=== PATIENT | female | born 1950 | race Caucasian/White ===

== ENCOUNTER → 2016-10-16 | Outpatient (CLI) | payer BC ==
[2015-04-17 13:00] VITALS: BP 106/52
[~2016-10-16] MED LIST: ALPR0.254 PO; ANAS1TAB PO; DEXA4TAB PO; LEVO112T4 PO; LEVO125T PO; LEVO150T5 PO; ONDA8TAB12 PO; Oxycodone Hcl/Acetaminophen PO; SERT100T8 PO; ZOLP5TAB PO
--- NOTE | 2016-10-16 11:55 | KCIC ---
PROCEDURE Bone density DEXA. HISTORY Postmenopausal. History of chemotherapy drugs. COMPARISON Bone density DEXA 08/23/2014. FINDINGS Dual photon densitometry of the lumbar spine and left proximal femur is performed. Bone mineral density values are measured in grams per cm2. Lumbar spine, L1-L4, total bone mineral density 0.737, T-score -2.8, Z-score -1.1. Bone mineral density is decreased by 8.3 percent since the prior study. Left total femur bone mineral density 0.615, T-score -2.7, Z-score -1.5. The bone mineral density is decreased by 14.7 percent since the prior study. World Health Organization criteria for bone mineral density interpretation classify patient's as normal (T-score at or above -1.0), osteopenic (T-score between -1 and -2.5), or osteoporotic (T-score at or below -2.5). 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 Bone mineral density has decreased since the prior study. Electronically signed by: Yakov Hernandez MD (Oct 16, 2016 11:53:11)
== END | disposition home or self-care (01) ==
LOC: KCIC DEXA 09:00
PROVIDERS: ATTEND Internal Medicine Hematology & Oncology
DX: M81.0 Age-related osteoporosis without current pathological fracture (principal); Z78.0 Asymptomatic menopausal state
CPT/HCPCS: 77080

== ENCOUNTER 2017-03-22 13:38 | Emergency (ER) | payer MEDICARE, BC ==
[~2017-03-22] VITALS: Ht 154.9 cm; Wt 59.0 kg
[2017-03-22 13:54] VITALS: BP 137/82
[2017-03-22] MEDS ORDERED: PRED20TA PO (14:32)
--- NOTE | 2017-03-22 14:32 | PHYS DOC ---
Past Medical History Past Medical History: Depression, Hypertension, Hypothyroid, Other Additional Past Medical Histor: breast ca Past Surgical History: Appendectomy, Hysterectomy, Other Additional Past Surgical Histo: r breast, thyroidectomy, Alcohol Use: None Drug Use: None Adult General Chief Complaint Chief Complaint: SKIN RASH/ABSCESS [facility] HPI Patient is a 66 year old female presents emergency department stating that she has a rash on bilateral inner legs just above the ankle. The areas appear to be red no raised areas noted. Patient states that she had gone to the [facility] yesterday and she had noticed the rash when she woke up today. She states the rash does not itch and is really not very irritating. She states that it's red she denies any drainage or discharge coming from the site. She has not taken anything for the rash. Review of Systems Review of Systems Constitutional: Denies fever or chills [] Eyes: Denies change in visual acuity, redness, or eye pain [] HENT: Denies nasal congestion or sore throat [] Respiratory: Denies cough or shortness of breath [] Cardiovascular: No additional information not addressed in HPI [] GI: Denies abdominal pain, nausea, vomiting, bloody stools or diarrhea [] : Denies dysuria or hematuria [] Musculoskeletal: Denies back pain or joint pain [] Integument: rash denies skin lesions [] Neurologic: Denies headache, focal weakness or sensory changes [] Endocrine: Denies polyuria or polydipsia [] Allergies Allergies Allergies Coded Allergies Type Severity Reaction Last Updated Verified Sulfa (Sulfonamide Antibiotics) Allergy Intermediate Hives 06/22/14 Yes Physical Exam Physical Exam Constitutional: Well developed, well nourished, no acute distress, non-toxic appearance. [] HENT: Normocephalic, atraumatic, bilateral external ears normal, oropharynx moist, no oral exudates, nose normal. [] Eyes: PERRLA, EOMI, conjunctiva normal, no discharge. [] Neck: Normal range of motion, no tenderness, supple, no stridor. [] Cardiovascular:Heart rate regular rhythm, no murmur [] Lungs & Thorax: Bilateral breath sounds clear to auscultation [] Skin: Warm, dry, no erythema, patient with red rash noted to the inner bilateral lower legs. No drainage or discharge coming from the site. The rash appears to be red with no elevation noted. Back: No tenderness Extremities: No tenderness, no cyanosis, no clubbing, ROM intact, no edema. [] Neurologic: Alert and oriented X 3, normal motor function, normal sensory function, no focal deficits noted. [] Psychologic: Affect normal, judgement normal, mood normal. [] Current Patient Data Vital Signs Vital Signs Date Time Temp Pulse Resp B/P (MAP) Pulse Ox O2 Delivery O2 Flow Rate FiO2 03/22/17 13:54 98.2 80 19 98 Room Air 98.2 EKG EKG [] Radiology/Procedures Radiology/Procedures [] Course & Med Decision Making Course & Med Decision Making Pertinent Labs and Imaging studies reviewed. (See chart for details) Patient will be placed on steroids with recommendations to follow-up with her primary care provider in approximately 5-7 days. Patient was also instructed to use Benadryl of the areas become itching and irritated. Recommended keeping the areas clean dry and cool. Patient will be discharged home in stable condition signs and symptoms to return back to emergency department as been provided. [] Dragon Disclaimer Dragon Disclaimer This electronic medical record was generated, in whole or in part, using a voice recognition dictation system. Departure Departure Impression: Primary Impression: Contact dermatitis Disposition: 01 HOME, SELF-CARE Condition: STABLE Referrals: Edith CONTE MD (PCP) Patient Instructions: Contact Dermatitis, [id number] Additional Instructions: Keep the areas clean dry and cool. You may try Benadryl [id number] if you have any itching or irritation. This medication will cause drowsiness do not take any be alert and oriented. Medication as prescribed. Follow-up with your primary care physician within the next week. Return back to emergency prior signs symptoms of become worse. Scripts Prednisone (PREDNISONE) 20 Mg Tablet 40 MG PO DAILY for 7 Days, #14 TAB Prov: ELMER PIMENTEL APRN 03/22/17 ELMER PIMENTEL APRN Mar 22, 2017 14:32
== END 2017-03-22 14:37 | disposition home or self-care (01) ==
LOC: ER 13:38
DX: L25.9 Unspecified contact dermatitis, unspecified cause (principal); E03.9 Hypothyroidism, unspecified; I10 Essential (primary) hypertension; F32.9 Major depressive disorder, single episode, unspecified; Z90.710 Acquired absence of both cervix and uterus; Z90.49 Acquired absence of other specified parts of digestive tract; Z88.2 Allergy status to sulfonamides
CPT/HCPCS: 99283

== ENCOUNTER 2017-08-04 14:18 | Emergency (ER) | payer MEDICARE, BC ==
[~2017-08-04] VITALS: Ht 162.6 cm; Wt 59.0 kg
[~2017-08-04 14:18] MED LIST changes: +PRED20TA PO
[2017-08-04 15:00] VITALS: BP 154/68
[2017-08-04] MEDS ORDERED: fentaNYL PF VIAL 100 MCG/2 ML VIAL IV ONE (15:00)
[2017-08-04] MEDS ORDERED: IOHEXOL 300 MG/ML 100ML VIAL. IV ONE (15:15)
[2017-08-04 15:18] LABS: POTASSIUM ISTAT 4.4 mmol/L (3.5-5.0)
--- NOTE | 2017-08-04 15:26 | PHYS DOC ---
Past Medical History Past Medical History: Cancer, Depression, Hypertension, Hypothyroid, Other Additional Past Medical Histor: breast ca Past Surgical History: Appendectomy, Hysterectomy, Other Additional Past Surgical Histo: r breast, thyroidectomy, Alcohol Use: None Drug Use: None Adult General Chief Complaint Chief Complaint: MULTIPLE TRAUMA/FALL HPI HPI Patient is a 66 year old F who presents with left-sided rib/chest pain status post falling off a ladder approximately 3 feet. Patient states she was attempting to grab something up on a shelf and fell backwards and hit her left chest/ribs against a railing. Patient denies hitting her head and has no loss of consciousness. Patient denies any head or neck pain. Patient complains of just left rib pain. Patient denies any other injuries. Patient has no other complaints. Review of Systems Review of Systems GEN: Denies fevers, chills, sweats HEENT: Denies blurred vision, sore throat CV: Left rib pain RESP: Denies shortness of air, cough GI: Denies n/v/d NEURO: Denies confusion, dizziness MSK: Denies weakness, joint pain/swelling All other systems were reviewed and found to be within normal limits, except as documented in this note. Current Medications Current Medications Current Medications Medications (Trade) Dose Ordered Sig/Trini Start Time Stop Time Status Last Admin Dose Admin Fentanyl Citrate (Fentanyl 2ml Vial) 50 mcg 1X ONCE 08/04/17 15:00 08/04/17 15:01 DC 08/04/17 15:54 50 MCG Iohexol (Omnipaque 300 Mg/ml) 75 ml 1X ONCE 08/04/17 15:15 08/04/17 15:16 DC 08/04/17 15:35 75 ML Allergies Allergies Allergies Coded Allergies Type Severity Reaction Last Updated Verified Sulfa (Sulfonamide Antibiotics) Allergy Intermediate Hives 06/22/14 Yes Physical Exam Physical Exam GEN.: No apparent distress. Alert and oriented. HEENT: Head is normocephalic, atraumatic NECK: Supple. LUNGS: CTAB. CHEST WALL: Tenderness palpation over the left ribs midaxillary, no crepitus, no subcutaneous air palpated HEART: RRR, S1, S2 present. Peripheral pulses intact ABDOMEN: Soft, nontender. Positive bowel sounds. EXTREMITIES: Without any cyanosis. NEUROLOGIC: Normal speech, normal tone PSYCHIATRIC: Normal affect, normal mood. SKIN: No ulcerations Current Patient Data Vital Signs Vital Signs Date Time Temp Pulse Resp B/P (MAP) Pulse Ox O2 Delivery O2 Flow Rate FiO2 08/04/17 15:54 20 96 08/04/17 14:35 97.7 60 126/68 (87) Room Air 97.7 Lab Values Laboratory Tests Test 08/04/17 15:13 POC Hemoglobin 13.6 g/dL (12-15) POC Hematocrit 40 % (36-40) POC Sodium 139 mmol/L (135-145) POC Potassium 4.4 mmol/L (3.5-5.0) POC Chloride 105 mmol/L (98-110) POC Total CO2 28 mmol/L (23-32) Anion Gap 12 mmol/L (6-14) POC Blood Urea Nitrogen 21 mg/dL (8-26) POC Creatinine 0.9 mg/dL (0.5-1.4) Glucose Level 98 mg/dL (70-99) POC Ionized Calcium (Caridad) 1.22 mmol/L (1.13-1.32) Laboratory Tests 08/04/17 15:13 EKG EKG [] Radiology/Procedures Radiology/Procedures Ct chest: Impression: 1. No acute thoracic findings. 2. Small pulmonary nodules are stable back to February 16, 2015.[] Course & Med Decision Making Course & Med Decision Making Pertinent Labs and Imaging studies reviewed. (See chart for details) ED course: Patient was seen and examined emergency room CT scan of chest was ordered to rule out rib fractures normal color contusion I-STAT unremarkable CT scan was unremarkable for any acute abnormalities previous lung nodule stable 1625: Patient was updated on CT findings and plan to discharge. Recommended over -the-counter pain medication for management. And short-term follow-up with PCP. MDM: After reviewing the chart, CC/HPI/PMH, physical exam, [lab results], [ radiological results], I do not believe the patient has emergent medical condition warranting further workup and/or admission at this time. I do not believe the patient has a significant traumatic injury. Patient stable for discharge. Additional verbal discharge instructions were provided to the patient and that if symptoms get worse or any new symptoms arise that are worrisome to the patient she is to return to the emergency room immediately [] Dragon Disclaimer Dragon Disclaimer This electronic medical record was generated, in whole or in part, using a voice recognition dictation system. Departure Departure Impression: Primary Impression: Contusion of rib on left side Disposition: 01 HOME, SELF-CARE Condition: IMPROVED Referrals: Edith CONTE MD (PCP) Patient Instructions: Rib Contusion Additional Instructions: Please follow-up with your family physician in the next one to 2 days and return if symptoms increase CHRIS MENDEZ DO Aug 04, 2017 15:26
--- NOTE | 2017-08-04 16:08 | RAD ---
Indication: Left rib pain after a fall. Breast cancer. Technique: Axial images and coronal and sagittal reformatted images are provided. Comparison is from February 16, 2015. 75 mL of intravenous Omnipaque 300 was administered. One or more of the following individualized dose reduction techniques were utilized for this examination: 1. Automated exposure control 2. Adjustment of the mA and/or kV according to patient size 3. Use of iterative reconstruction technique Findings: The 2 mm nodule in the left upper lobe on image 14 is stable. 3 nodules measuring 2 mm in the left lower lobe on images 25 and 26 are stable. There is dependent atelectasis. There is no consolidation. There is no pleural effusion. Central airways are patent. There is atheromatous disease in the thoracic aorta without aneurysm. Coronary artery calcifications are noted. There is no hilar or mediastinal adenopathy. Patient has underwent right mastectomy. A displaced rib fracture is not apparent. There is mild dextrocurvature in the thoracic spine. Limited evaluation of the upper abdomen demonstrates fatty infiltration of the liver, mild. Impression: 1. No acute thoracic findings. 2. Small pulmonary nodules are stable back to February 16, 2015.
== END 2017-08-04 16:35 | disposition home or self-care (01) ==
LOC: ER 14:18
DX: S20.212A Contusion of left front wall of thorax, initial encounter (principal); F32.9 Major depressive disorder, single episode, unspecified; I10 Essential (primary) hypertension; E89.0 Postprocedural hypothyroidism; Z90.710 Acquired absence of both cervix and uterus; Z90.49 Acquired absence of other specified parts of digestive tract; Z88.2 Allergy status to sulfonamides; W11.XXXA Fall on and from ladder, initial encounter; Y93.89 Activity, other specified; Y92.89 Other specified places as the place of occurrence of the external cause; Y99.8 Other external cause status
CPT/HCPCS: 36415; 71260; 80047; 85014; 85018; 96374; 99284; J3010; Q9967

== ENCOUNTER → 2017-11-04 | Outpatient (CLI) | payer MEDICARE, BC | END | disposition home or self-care (01) | LOC: NM 07:34 | DX: C50.419 Malignant neoplasm of upper-outer quadrant of unspecified female breast (principal); M89.8X9 Other specified disorders of bone, unspecified site; Z17.0 Estrogen receptor positive status [ER+] | CPT/HCPCS: 78306; 96374; A9503 ==

== ENCOUNTER → 2017-11-10 | Outpatient (CLI) | payer MEDICARE, BC ==
[2017-11-10] MEDS: IOHEXOL 300 MG/ML 100ML VIAL. IV (11:16)
[2017-11-10] MEDS: IOHEXOL 240 MG/ML 50ML VIAL. PO (11:16)
== END | disposition home or self-care (01) ==
LOC: CT 09:40
DX: C50.419 Malignant neoplasm of upper-outer quadrant of unspecified female breast (principal); J43.2 Centrilobular emphysema; R16.1 Splenomegaly, not elsewhere classified; R94.8 Abnormal results of function studies of other organs and systems; Z17.0 Estrogen receptor positive status [ER+]
CPT/HCPCS: 71260; 74177; Q9966; Q9967

== ENCOUNTER → 2017-11-26 | Outpatient (CLI) | payer MEDICARE, BC ==
[2017-11-26 11:38] LABS: FECAL OB PT NEGATIVE (NEG)
[2017-11-26 11:39] LABS: NEG OBC FOB NEG; POS OBC FOB POS
== END | disposition home or self-care (01) ==
LOC: LAB 10:33
DX: R19.7 Diarrhea, unspecified (principal)
CPT/HCPCS: 82274; 87177; 87205

== ENCOUNTER → 2018-02-18 | Outpatient (CLI) | payer MEDICARE, BC ==
[~2018-02-18] MED LIST changes: -ALPR0.254 PO; -ANAS1TAB PO; +CONTRAST GIVEN. MC; -DEXA4TAB PO; -LEVO112T4 PO; -LEVO125T PO; -LEVO150T5 PO; -ONDA8TAB12 PO; -Oxycodone Hcl/Acetaminophen PO; -PRED20TA PO; -SERT100T8 PO; -ZOLP5TAB PO
[2018-02-18] MEDS: IOHEXOL 240 MG/ML 50ML VIAL. PO (08:45)
[2018-02-18] MEDS: IOHEXOL 300 MG/ML 100ML VIAL. IV (10:16)
== END | disposition home or self-care (01) ==
LOC: CT 08:32
DX: I70.0 Atherosclerosis of aorta (principal); Z85.3 Personal history of malignant neoplasm of breast; Z85.118 Personal history of other malignant neoplasm of bronchus and lung
CPT/HCPCS: 71260; 74177; Q9966; Q9967

== ENCOUNTER 2020-06-02 18:11 | Emergency (ER) | payer MEDICARE, BC ==
[~2020-06-02] VITALS: Ht 154.9 cm; Wt 50.0 kg
[~2020-06-02 18:11] MED LIST changes: +ALPR0.254 PO; +ANAS1TAB PO; -CONTRAST GIVEN. MC; +DEXA4TAB PO; +LEVO112T49 PO; +LEVO125T PO; +LEVO150T5 PO; +ONDA8TAB12 PO; +Oxycodone Hcl/Acetaminophen PO; +PRED20TA PO; +SERT100T8 PO; +ZOLP5TAB PO
--- NOTE | 2020-06-02 18:59 | PHYS DOC ---
Past Medical History Past Medical History: Cancer, Depression, Hypertension, Hypothyroid, Other Additional Past Medical Histor: breast ca; heart valve problem (ELMER SALAZAR BED RUBBER) Past Surgical History: Appendectomy, Hysterectomy, Other Additional Past Surgical Histo: r breast, thyroidectomy, (ELMER SALAZAR BED RUBBER) Smoking Status: Former Smoker Alcohol Use: None Drug Use: None (ELMER SALAZAR BED RUBBER) General Adult EDM: Chief Complaint: MECHANICAL FALL HPI: HPI: Patient is a 69 year old female who presents with states over the last week she has become more unsteady on her feet. She is currently on her second round of treatment antibiotics for a urinary tract infection. states today she went shopping with her friends and states when she came home she went up a couple of stairs but then fell back onto her bottom on wooden stairs. states he is worried that she is having a stroke. Patient states that she is currently slightly lightheaded. Patient currently denies any pain. Patient denies back pain, neck pain, headache, dizziness, chest pain, shortness of air, fever, syncope, vision changes, numbness or tingling. (ELMER SALAZAR BED RUBBER) Review of Systems: Review of Systems: Constitutional: Denies fever or chills. [] Eyes: Denies change in visual acuity. [] HENT: Denies nasal congestion or sore throat. [] Respiratory: Denies cough or shortness of breath. [] Cardiovascular: Denies chest pain or edema. [] GI: Denies abdominal pain, nausea, vomiting, bloody stools or diarrhea. [] : Denies dysuria. [] Musculoskeletal: Denies back pain or joint pain. +Unsteady, +coccyx pain [] Integument: Denies rash. [] Neurologic: Denies headache, focal weakness or sensory changes. + Lightheadedness [] Endocrine: Denies polyuria or polydipsia. [] Lymphatic: Denies swollen glands. [] Psychiatric: Denies depression or anxiety. [] (ELMER SALAZAR BED RUBBER) Heart Score: Risk Factors: Risk Factors: DM, Current or recent (<one month) smoker, HTN, HLP, family history of CAD, obesity. Risk Scores: Score 0 - 3: 2.5% MACE over next 6 weeks - Discharge Home Score 4 - 6: 20.3% MACE over next 6 weeks - Admit for Clinical Observation Score 7 - 10: 72.7% MACE over next 6 weeks - Early Invasive Strategies ([facility]) Allergies: Allergies: Allergies Coded Allergies Type Severity Reaction Last Updated Verified Sulfa (Sulfonamide Antibiotics) Allergy Intermediate Hives 06/22/14 Yes ([facility]) Physical Exam: PE: Constitutional: Well developed, well nourished, no acute distress, non-toxic appearance. [] HENT: Normocephalic, atraumatic, bilateral external ears normal, oropharynx moist, no oral exudates, nose normal. [] Eyes: PERRLA, EOMI, conjunctiva normal, no discharge. [] Neck: Normal range of motion, no tenderness, supple, no stridor. [] Cardiovascular:Heart rate regular rhythm, no murmur [] Lungs & Thorax: Bilateral breath sounds clear to auscultation [] Abdomen: Bowel sounds normal, soft, no tenderness, no masses, no pulsatile masses. [] Skin: Warm, dry, no erythema, no rash. [] Back: No tenderness, no CVA tenderness. [] Extremities: No tenderness, no cyanosis, no clubbing, ROM intact, no edema. [] Neurologic: Alert and oriented X 3, normal motor function, normal sensory function, no focal deficits noted. [] Psychologic: Affect normal, judgement normal, mood normal. Normal physical exam [] ([facility] Current Patient Data: Vital Signs: Vital Signs Date Time Temp Pulse Resp B/P (MAP) Pulse Ox O2 Delivery O2 Flow Rate FiO2 06/02/20 18:29 98.1 69 16 121/58 (79) 97 Room Air 98.1 ([facility]) EKG: EK and read as sinus rhythm and no STEMI [] ([facility]) Radiology/Procedures: Radiology/Procedures: [] Impression: [facility] [address] [place], [place] [id number] IMAGING REPORT Signed PATIENT: NANO BATISTA ACCOUNT: [id number] : 1950 LOCATION: ER AGE: 69 SEX: F EXAM STATUS: REG ER ORD. PHYSICIAN: ELMER SALAZAR APRN REASON: fall PROCEDURE: SACRUM & COCCYX 3V SACRUM COCCYX 3V Clinical Indication: Reason: fall / Spl. Instructions: / History: Comparison: None. Findings: No diastasis of symphysis pubis. Pubic rami are intact. Visualized hips unremarkable. Sacroiliac joints are symmetric. No acute sacral fracture. Question small gap at the distal coccyx segments, but does not appear acute. The sacral alignment is maintained. Atherosclerotic abdominal aorta. Lower lumbar spine alignment is maintained. IMPRESSION: No acute fracture. Electronically signed by: Yakov Hernandez MD (06/02/2020 7:26 PM) [facility] DICTATED and SIGNED BY: YAKOV HERNANDEZ MD DATE: 06/02/20 [address] [facility] [address] [place] [address] IMAGING REPORT Signed PATIENT: NANO BATISTA ACCOUNT: [id number] : 1950 LOCATION: ER AGE: 69 SEX: F EXAM STATUS: REG ER ORD. PHYSICIAN: ELMER SALAZAR APRN REASON: light headedness PROCEDURE: CT HEAD WO CONTRAST PQRS Compliance Statement: One or more of the following individualized dose reduction techniques were utilized for this examination: 1. Automated exposure control 2. Adjustment of the mA and/or kV according to patient size 3. Use of iterative reconstruction technique CT HEAD WITHOUT CONTRAST History: Reason: light headedness / Spl. Instructions: / History: Comparison: None. Technique: Axial images are obtained of the head from the skull base through the vertex without IV contrast. Findings: No mass-effect, midline shift, extra-axial fluid collection, hemorrhage, or obvious acute infarction is identified. Basilar cisterns are patent. The ventricles and sulci are normal for patient age. There is mild periventricular white matter hypoattenuation. This is a nonspecific finding but is commonly due to chronic small vessel ischemic disease. Bone windows demonstrate no acute calvarial abnormality. The visualized paranasal sinuses are clear. Mastoid air cells are well aerated. IMPRESSION: 1. No acute intracranial abnormality. 2. Mild periventricular white matter changes probably due to chronic small vessel ischemic disease. Electronically signed by: Yakov Hernandez MD (06/02/2020 7:46 PM) [facility] DICTATED and SIGNED BY: YAKOV HERNANDEZ MD DATE: 06/02/201945 (ELMER SALAZAR APRN) Course & Med Decision Making: Course & Med Decision Making Pertinent Labs and Imaging studies reviewed. (See chart for details) See HPI. Alert and oriented x4. Speaks in full complete sentences. NIH is 0. Ambulatory with a steady gait but does sway a bit when walking but herself. states that she is usually unsteady. It is unclear of what her baseline actually is. But has been stating that patient seems slightly more unsteady when walking. Patient and deny her hitting her head. There is no focal bony spinal tenderness. Full range of motion of her neck. No trauma to her head or face. No bruising or deformity to any joints or swelling to any joints. No hip pain with palpation or with palpation on her coccyx. No pain is elicited with pelvic rock. Patient has full range of motion at her hip joints and at all joints of her body. Equal strengths and general foreman with all extremities. No extremity swelling. Skin pink warm and dry. Patient states she is otherwise feeling fine. Patient is afebrile. CT head is normal. Sacrum coccyx x-ray is normal. Urinalysis still shows infection. Patient states she finished antibiotic yesterday but neither her nor her can tell me what antibiotic she was on. Patient states that she is feeling good. Patient is eating and drinking at home. She does not have a high white blood cell count. No signs of sepsis. Vital signs are within normal limits. I will put patient on an antibiotic and will be sent home. I spoke to the patient and her family we used shared decisi on making and they have decided that they want to go home. I did offer admission. Patient is stable to continue outpatient antibiotics. [] (ELMER SALAZAR APRN) Dragon Disclaimer: Dragon Disclaimer: This electronic medical record was generated, in whole or in part, using a voice recognition dictation system. (ELMER SALAZAR APRN) NIHSS Stroke Scale NIH Stroke Scale: NIH Stroke Scale Response (Comments) Value Level of Consciousness: 0 Alert/Responsive 0 LOC Questions: 0 Answers both correctly 0 LOC Commands: 0 Performs both tasks 0 Best Gaze: 0 Normal 0 Visual: 0 No visual loss 0 Facial Palsy: 0 Normal, symmetrical 0 Motor - Left Arm 0 No drift 0 Motor - Right Arm 0 No drift 0 Motor - Left Leg 0 No drift 0 Motor: Right Leg 0 No drift 0 Limb Ataxia: 0 Absent 0 Sensory: 0 No loss 0 Best Language: 0 Normal 0 Dysathria: 0 Normal 0 Extinction and Inattention: 0 Normal 0 Total 0 Departure Departure Impression: Primary Impression: UTI (urinary tract infection) Qualified Codes: N30.01 - Acute cystitis with hematuria Additional Impression: Fall Qualified Codes: W19.XXXA - Unspecified fall, initial encounter Disposition: 01 DC HOME SELF CARE/HOMELESS Condition: STABLE Referrals: Edith CONTE MD (PCP) Patient Instructions: Fall Prevention and Home Safety, [id number], Urinary Tract Infection Additional Instructions: Follow-up with primary care provider as soon as possible. Drink plenty of fluids. Take medication as prescribed. If you begin getting worse return to the emergency room. Scripts Nitrofurantoin Monohyd/M-Cryst (MACROBID 100 MG CAPSULE) 100 Mg Capsule 1 CAP PO BID for 10 Days, #20 CAP 0 Refills Prov: ELMER SALAZAR APRN 06/02/20 Attending Signature Attending Signature I have reviewed the PA/IT SECURITY ENGINEER's note and plan of care. I was available for consultation as needed during the patient's visit in the emergency department. I agree with the clinical impression, plan, and disposition. (NGUYEN SANCHEZ DO) ELMER SALAZAR APRN Jun 02, 2020 18:59 NGUYEN SANCHEZ DO Jun 02, 2020 23:08
[2020-06-02 19:27] LABS: BASO % 1 % (0-3); EOS # 0.1 x10^3/uL (0.0-0.7); EOS % 2 % (0-3); HEMATOCRIT 35.6 % (36.0-47.0); HEMOGLOBIN 12.2 g/dL (12.0-15.5); LYMPH # 1.2 x10^3/uL (1.0-4.8); LYMPH % 21 % (24-48); MEAN CORPUSCULAR HEMOGLOBIN 27 pg (25-35); MEAN CORPUSCULAR HGB CONC 34 g/dL (31-37); MEAN CORPUSCULAR VOLUME 80 fL (79-100); MONO # 0.4 x10^3/uL (0.0-1.1); MONO % 8 % (0-9); NEUT # 3.7 x10^3/uL (1.8-7.7); NEUT % 69 % (31-73); PLATELET COUNT 120 x10^3/uL (140-400); RED BLOOD COUNT 4.46 x10^6/uL (3.50-5.40); RED CELL DISTRIBUTION WIDTH 15.5 % (11.5-14.5); WHITE BLOOD COUNT 5.4 x10^3/uL (4.0-11.0)
--- NOTE | 2020-06-02 19:29 | RAD ---
SACRUM COCCYX 3V Clinical Indication: Reason: fall / Spl. Instructions: / History: Comparison: None. Findings: No diastasis of symphysis pubis. Pubic rami are intact. Visualized hips unremarkable. Sacroiliac joints are symmetric. No acute sacral fracture. Question small gap at the distal coccyx segments, but does not appear acute. The sacral alignment is maintained. Atherosclerotic abdominal aorta. Lower lumbar spine alignment is maintained. IMPRESSION: No acute fracture. Electronically signed by: Yakov Hernandez MD (06/02/2020 7:26 PM) ALIE
[2020-06-02 19:30] LABS: BILIRUBIN,URINE NEGATIVE (NEG); CLARITY,URINE CLEAR; COLOR,URINE YELLOW; NITRITE,URINE NEGATIVE (NEG); PH,URINE 5.5 (<5.0-8.0); PROTEIN,URINE NEGATIVE (NEG-TRACE); UROBILINOGEN,URINE 0.2 mg/dL (0.2 mg/dL)
[2020-06-02 19:35] LABS: CALCIUM 8.7 mg/dL (8.5-10.1); CREATININE 1.3 mg/dL (0.6-1.0); GFR 40.7; POTASSIUM 3.4 mmol/L (3.5-5.1)
[2020-06-02 19:37] LABS: ALBUMIN 4.1 g/dL (3.4-5.0); ALBUMIN/GLOBULIN RATIO 1.5 (1.0-1.7); PROTHROMBIN TIME PATIENT 14.5 SEC (11.7-14.0); TOTAL BILIRUBIN 0.4 mg/dL (0.2-1.0); TOTAL PROTEIN 6.8 g/dL (6.4-8.2)
[2020-06-02 19:37] LABS: BARBITURATES NEG (NEG); BENZODIAZEPINES POS (NEG); CANNABINOIDS NEG (NEG); COCAINE NEG (NEG); METHADONE NEG (NEG); OPIATES NEG (NEG); PHENCYCLIDINE NEG (NEG)
[2020-06-02 19:44] LABS: AMPHETAMINE/METHAMPHETAMINE NEG (NEG)
[2020-06-02 19:45] LABS: WBC,URINE TNTC /HPF (0-4)
[2020-06-02 19:46] LABS: BACTERIA,URINE MODERATE /HPF (0-FEW); HYALINE CASTS, URINE FEW /HPF
--- NOTE | 2020-06-02 19:49 | RAD ---
RS Compliance Statement: One or more of the following individualized dose reduction techniques were utilized for this examination: 1. Automated exposure control 2. Adjustment of the mA and/or kV according to patient size 3. Use of iterative reconstruction technique CT HEAD WITHOUT CONTRAST History: Reason: light headedness / Spl. Instructions: / History: Comparison: None. Technique: Axial images are obtained of the head from the skull base through the vertex without IV contrast. Findings: No mass-effect, midline shift, extra-axial fluid collection, hemorrhage, or obvious acute infarction is identified. Basilar cisterns are patent. The ventricles and sulci are normal for patient age. There is mild periventricular white matter hypoattenuation. This is a nonspecific finding but is commonly due to chronic small vessel ischemic disease. Bone windows demonstrate no acute calvarial abnormality. The visualized paranasal sinuses are clear. Mastoid air cells are well aerated. IMPRESSION: 1. No acute intracranial abnormality. 2. Mild periventricular white matter changes probably due to chronic small vessel ischemic disease. Electronically signed by: Yakov Hernandez MD (06/02/2020 7:46 PM) [facility]
[2020-06-02] MEDS ORDERED: IV NORMAL SALINE 500ML BAG 500 ML IV ONE (20:00)
[2020-06-02] MEDS ORDERED: NITR100C62 PO (20:24)
[2020-06-02 20:30] VITALS: BP 107/55
--- NOTE | 2020-06-03 05:42 | EKG ---
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
== END 2020-06-02 20:40 | disposition home or self-care (01) ==
LOC: ER 18:11
DX: N30.01 Acute cystitis with hematuria (principal); R42 Dizziness and giddiness; I10 Essential (primary) hypertension; E03.9 Hypothyroidism, unspecified; F32.9 Major depressive disorder, single episode, unspecified; Z85.9 Personal history of malignant neoplasm, unspecified; Z90.89 Acquired absence of other organs; Z90.710 Acquired absence of both cervix and uterus; Z87.891 Personal history of nicotine dependence; Z98.890 Other specified postprocedural states; Z88.2 Allergy status to sulfonamides
CPT/HCPCS: 36415; 70450; 72220; 80053; 80307; 81001; 83690; 84484; 85025; 85610; 87086; 93005; 96360; 99285; J7040

== ENCOUNTER → 2020-06-25 | Outpatient (CLI) | payer MEDICARE, BC ==
[2020-06-02 20:30] VITALS: BP 107/55
[~2020-06-25] MED LIST changes: +CONTRAST GIVEN. MC PRN; +IOHEXOL 240 MG/ML 50ML VIAL. PO ONE; +IOHEXOL 300 MG/ML 100ML VIAL. IV ONE; +NITR100C62 PO
--- NOTE | 2020-06-25 12:27 | RAD ---
EXAM: CT Abdomen and Pelvis with IV contrast CLINICAL HISTORY: Breast cancer, low back pain. COMPARISON: 02/18/2018, 11/10/2017 TECHNIQUE: Helical CT of the abdomen and pelvis was performed following the administration of IV contrast. Axial, coronal and sagittal reformatted images were generated. ---PQRS compliance statement - One or more of the following individualized dose reduction techniques were utilized for this study: 1. Automated exposure control 2. Adjustment of the mA and/or kV according to patient size 3. Use of iterative reconstruction technique--- FINDINGS: Lower chest: Aortic root calcifications are seen. Abdomen and pelvis: Liver and biliary system: No focal liver lesion. Gallbladder is normal. No biliary ductal dilatation. Spleen: Enlarged measuring 18.1 cm in AP dimension. Calcified granuloma are seen within the spleen. Pancreas: Unremarkable Adrenal glands: Unremarkable Kidneys: Symmetric nephrograms. No focal renal lesion. No hydronephrosis. No hydroureter. Ureteral enhancement greater on the right. Lymph nodes/retroperitoneum: No abdominal or pelvic lymphadenopathy. Vessels: Aortic calcifications are seen. Aorta is normal in caliber. Bowel/Peritoneal cavity: Moderate colonic stool content. No small or large bowel dilatation. No bowel obstruction. Appendix is not seen. No abdominal or pelvic ascites. Uterus is absent. Abdominal wall: Unremarkable Bladder: Diffuse bladder wall thickening may be seen with cystitis. Bones: No aggressive osseous lesion is seen. IMPRESSION: 1. Diffuse bladder wall thickening may be seen with cystitis. Associated ureteral enhancement, likely ureteritis, greater on the right, suspicious for ascending infection. These findings can be correlated with urinalysis 2. No evidence for bowel obstruction. 3. Splenomegaly. 4. No abdominal or pelvic lymphadenopathy. Electronically signed by: Sanjay Gusman MD (06/25/2020 12:24 PM) [facility]
== END ==
LOC: CT 09:01
PROVIDERS: ATTEND Internal Medicine Hematology & Oncology
DX: C50.411 Malignant neoplasm of upper-outer quadrant of right female breast (principal); I25.10 Atherosclerotic heart disease of native coronary artery without angina pectoris; R16.1 Splenomegaly, not elsewhere classified; D73.89 Other diseases of spleen
CPT/HCPCS: 74177; Q9966; Q9967

== ENCOUNTER 2020-09-10 16:57 | Emergency (ER) | payer MEDICARE, BC ==
[~2020-09-10] VITALS: Ht 154.9 cm; Wt 51.0 kg
[~2020-09-10 16:57] MED LIST changes: -CONTRAST GIVEN. MC PRN; -IOHEXOL 240 MG/ML 50ML VIAL. PO ONE; -IOHEXOL 300 MG/ML 100ML VIAL. IV ONE
[2020-09-10 17:38] LABS: BASO % 0 % (0-3); EOS # 0.1 x10^3/uL (0.0-0.7); EOS % 1 % (0-3); HEMATOCRIT 41.7 % (36.0-47.0); HEMOGLOBIN 14.2 g/dL (12.0-15.5); LYMPH # 0.9 x10^3/uL (1.0-4.8); LYMPH % 8 % (24-48); MEAN CORPUSCULAR HEMOGLOBIN 28 pg (25-35); MEAN CORPUSCULAR HGB CONC 34 g/dL (31-37); MEAN CORPUSCULAR VOLUME 81 fL (79-100); MONO # 0.2 x10^3/uL (0.0-1.1); MONO % 2 % (0-9); NEUT # 9.7 x10^3/uL (1.8-7.7); NEUT % 89 % (31-73); PLATELET COUNT 174 x10^3/uL (140-400); RED BLOOD COUNT 5.12 x10^6/uL (3.50-5.40); RED CELL DISTRIBUTION WIDTH 15.8 % (11.5-14.5); WHITE BLOOD COUNT 10.9 x10^3/uL (4.0-11.0)
[2020-09-10 17:47] LABS: CALCIUM 9.4 mg/dL (8.5-10.1); CREATININE 1.2 mg/dL (0.6-1.0); GFR 44.7; POTASSIUM 4.4 mmol/L (3.5-5.1)
[2020-09-10 17:53] LABS: ALBUMIN 4.3 g/dL (3.4-5.0); ALBUMIN/GLOBULIN RATIO 1.4 (1.0-1.7); TOTAL BILIRUBIN 0.5 mg/dL (0.2-1.0); TOTAL PROTEIN 7.4 g/dL (6.4-8.2)
[2020-09-10 18:06] LABS: BILIRUBIN,URINE NEGATIVE (NEG); CLARITY,URINE CLOUDY; COLOR,URINE YELLOW; NITRITE,URINE POSITIVE (NEG); PH,URINE 5.5 (<5.0-8.0); PROTEIN,URINE NEGATIVE (NEG-TRACE); UROBILINOGEN,URINE 0.2 mg/dL (0.2 mg/dL)
[2020-09-10 18:13] LABS: BACTERIA,URINE MANY /HPF (0-FEW); RBC,URINE 0 /HPF (0-2); WBC,URINE TNTC /HPF (0-4)
[2020-09-10 18:14] LABS: HYALINE CASTS, URINE MODERATE /HPF
[2020-09-10] MEDS ORDERED: IOHEXOL 300 MG/ML 100ML VIAL. IV ONE (18:15)
[2020-09-10] MEDS ORDERED: CONTRAST GIVEN. MC PRN (18:15)
[2020-09-10] MEDS ORDERED: MORPHINE SULFATE 10 MG/ML VIAL. IV ONE (18:15)
[2020-09-10 18:28] LABS: % ATYL 1 % (0-0); % BANDS 6 % (0-9); % EOS 1 % (0-5); % LYMPHS 4 % (24-48); % MONOS 1 % (0-10); % SEGS 87 % (35-66)
[2020-09-10 18:29] LABS: PLT ESTIMATE ADEQUATE (ADEQUATE)
--- NOTE | 2020-09-10 18:48 | RAD ---
CT abdomen pelvis with contrast dated 09/10/2020. Comparison made to 06/25/2020. CLINICAL INDICATION: Right lower quadrant pain. TECHNIQUE: Contiguous axial imaging of abdomen and pelvis performed after the administration of 60 cc Omnipaque 300. One or more of the following individualized dose reduction techniques were utilized for this examinat ion: 1. Automated exposure control 2. Adjustment of the mA and/or kV according to patient size 3. Use of iterative reconstruction technique. FINDINGS: Limited images of lung bases are clear. Heart size is mildly enlarged. No pleural or pericardial effu blanca. Coronary artery calcifications. Liver is homogeneous. No apparent hepatic mass. Biliary tree normal in caliber. Gallbladder unremarka ble. Spleen is mildly enlarged. Pancreas, adrenal glands and kidneys are unremarkable. No hydronephrosis. Unopacified GI tract normal in caliber and contour. No focal bowel wall thickening. There is some haz y inflammatory stranding in the paracolonic fat near the hepatic flexure of uncertain etiology. Appen flaco is not clearly identified. There are a few scattered diverticula within the distal colon. No free fluid or lymphadenopathy. Abdominal aorta normal in caliber. Images of pelvis show nondistended urinary bladder. Uterus is surgically absent. No free fluid or pel whitley lymphadenopathy. Bone windows show no acute findings. Multilevel spondylosis. IMPRESSION: 1. There is some mild hazy inflammatory stranding in the paracolonic fat near the hepatic flexure, un certain etiology. Consider mild or subacute resolving colitis or epiploic appendagitis. 2. The appendix is not clearly identified. No inflammatory changes in the right lower quadrant. 3. Diverticulosis. 4. Status post hysterectomy. Electronically signed by: Peña Dodge MD (09/10/2020 6:46 PM) [id number]
[2020-09-10] MEDS ORDERED: cefTRIAXone IV Push 1 GM VIAL. IVP ONE (19:30)
[2020-09-10] MEDS ORDERED: CEPH500T PO (20:05)
[2020-09-10] MEDS ORDERED: TRAM50TA PO (20:05)
--- NOTE | 2020-09-10 20:06 | PHYS DOC ---
Past Medical History Past Medical History: Cancer, Depression, Hypertension, Hypothyroid, Other Additional Past Medical Histor: breast ca; heart valve problem Past Surgical History: Appendectomy, Hysterectomy, Other Additional Past Surgical Histo: r breast, thyroidectomy Smoking Status: Former Smoker Alcohol Use: None Drug Use: None General Adult EDM: Chief Complaint: ABDOMINAL PAIN HPI: HPI: Patient is a 69 year old female with a history of hypothyroidism, hypertension, depression, who presents to the ED today complaining of mild right lower quad rant abdominal pain that began this afternoon after having upper and lower GI scope for chronic diarrhea. Patient denies any fever. Denies any nausea vomiting. Denies any exacerbating or relieving factors to her pain. Review of Systems: Review of Systems: Constitutional: Denies fever or chills. [] Eyes: Denies change in visual acuity. [] HENT: Denies nasal congestion or sore throat. [] Respiratory: Denies cough or shortness of breath. [] Cardiovascular: Denies chest pain or edema. [] GI: Reports right lower quadrant abdominal pain, denies nausea, vomiting, bloody stools or diarrhea. [] : Denies dysuria. [] Musculoskeletal: Denies back pain or joint pain. [] Integument: Denies rash. [] Neurologic: Denies headache, focal weakness or sensory changes. [] Endocrine: Denies polyuria or polydipsia. [] Lymphatic: Denies swollen glands. [] Psychiatric: Denies depression or anxiety. [] Heart Score: Risk Factors: Risk Factors: DM, Current or recent (<one month) smoker, HTN, HLP, family history of CAD, obesity. Risk Scores: Score 0 - 3: 2.5% MACE over next 6 weeks - Discharge Home Score 4 - 6: 20.3% MACE over next 6 weeks - Admit for Clinical Observation Score 7 - 10: 72.7% MACE over next 6 weeks - Early Invasive Strategies Current Medications: Current Medications Medications (Trade) Dose Ordered Sig/Trini Start Time Stop Time Status Last Admin Dose Admin Ceftriaxone Sodium (Rocephin) 1 gm 1X ONCE 09/10/20 19:30 09/10/20 19:31 DC 09/10/20 19:41 1 GM Info (CONTRAST GIVEN -- Rx MONITORING) 1 each PRN DAILY PRN 09/10/20 18:15 09/12/20 18:14 09/10/20 18:37 1 EACH Iohexol (Omnipaque 300 Mg/ml) 75 ml 1X ONCE 09/10/20 18:15 09/10/20 18:16 DC 09/10/20 18:37 75 ML Morphine Sulfate (Morphine Sulfate) 5 mg 1X ONCE 09/10/20 18:15 09/10/20 18:16 DC 09/10/20 18:14 5 MG Allergies: Allergies: Allergies Coded Allergies Type Severity Reaction Last Updated Verified Sulfa (Sulfonamide Antibiotics) Allergy Intermediate Hives 06/22/14 Yes Physical Exam: PE: Constitutional: Well developed, well nourished, no acute distress, non-toxic appearance. [] HENT: Normocephalic, atraumatic, bilateral external ears normal, oropharynx moist, no oral exudates, nose normal. [] Eyes: PERRLA, EOMI, conjunctiva normal, no discharge. [] Neck: Normal range of motion, no tenderness, supple, no stridor. [] Cardiovascular:Heart rate regular rhythm, no murmur [] Lungs & Thorax: Bilateral breath sounds clear to auscultation [] Abdomen: Bowel sounds normal, soft, no tenderness, no masses, no pulsatile masses. [] Skin: Warm, dry, no erythema, no rash. [] Back: No tenderness, no CVA tenderness. [] Extremities: No tenderness, no cyanosis, no clubbing, ROM intact, no edema. [] Neurologic: Alert and oriented X 3, normal motor function, normal sensory function, no focal deficits noted. [] Psychologic: Affect normal, judgement normal, mood normal. [] Current Patient Data: Labs: Laboratory Tests Test 09/10/20 17:15 09/10/20 17:58 White Blood Count 10.9 x10^3/uL (4.0-11.0) Red Blood Count 5.12 x10^6/uL (3.50-5.40) Hemoglobin 14.2 g/dL (12.0-15.5) Hematocrit 41.7 % (36.0-47.0) Mean Corpuscular Volume 81 fL (79-100) Mean Corpuscular Hemoglobin 28 pg (25-35) Mean Corpuscular Hemoglobin Concent 34 g/dL (31-37) Red Cell Distribution Width 15.8 % (11.5-14.5) H Platelet Count 174 x10^3/uL (140-400) Neutrophils (%) (Auto) 89 % (31-73) H Lymphocytes (%) (Auto) 8 % (24-48) L Monocytes (%) (Auto) 2 % (0-9) Eosinophils (%) (Auto) 1 % (0-3) Basophils (%) (Auto) 0 % (0-3) Neutrophils # (Auto) 9.7 x10^3/uL (1.8-7.7) H Lymphocytes # (Auto) 0.9 x10^3/uL (1.0-4.8) L Monocytes # (Auto) 0.2 x10^3/uL (0.0-1.1) Eosinophils # (Auto) 0.1 x10^3/uL (0.0-0.7) Basophils # (Auto) 0.0 x10^3/uL (0.0-0.2) Segmented Neutrophils % 87 % (35-66) H Band Neutrophils % 6 % (0-9) Lymphocytes % 4 % (24-48) L Atypical Lymphocytes % (Manual) 1 % (0-0) H Monocytes % 1 % (0-10) Eosinophils % 1 % (0-5) Platelet Estimate Adequate (ADEQUATE) Sodium Level 143 mmol/L (136-145) Potassium Level 4.4 mmol/L (3.5-5.1) Chloride Level 107 mmol/L (98-107) Carbon Dioxide Level 23 mmol/L (21-32) Anion Gap 13 (6-14) Blood Urea Nitrogen 21 mg/dL (7-20) H Creatinine 1.2 mg/dL (0.6-1.0) H Estimated GFR (Cockcroft-Gault) 44.7 BUN/Creatinine Ratio 18 (6-20) Glucose Level 130 mg/dL (70-99) H Calcium Level 9.4 mg/dL (8.5-10.1) Total Bilirubin 0.5 mg/dL (0.2-1.0) Aspartate Amino Transferase (AST) 33 U/L (15-37) Alanine Aminotransferase (ALT) 47 U/L (14-59) Alkaline Phosphatase 113 U/L (46-116) Total Protein 7.4 g/dL (6.4-8.2) Albumin 4.3 g/dL (3.4-5.0) Albumin/Globulin Ratio 1.4 (1.0-1.7) Lipase 205 U/L (73-393) Urine Collection Type Unknown Urine Color Yellow Urine Clarity Cloudy Urine pH 5.5 (<5.0-8.0) Urine Specific [place] 1.020 (1.000-1.030) Urine Protein Negative mg/dL (NEG-TRACE) Urine Glucose (UA) Negative mg/dL (NEG) Urine Ketones (Stick) Negative mg/dL (NEG) Urine Blood Negative (NEG) Urine Nitrite Positive (NEG) Urine Bilirubin Negative (NEG) Urine Urobilinogen Dipstick 0.2 mg/dL (0.2 mg/dL) Urine Leukocyte Esterase Large (NEG) Urine RBC 0 /HPF (0-2) Urine WBC Tntc /HPF (0-4) Urine Squamous Epithelial Cells Mod /LPF Urine Bacteria Many /HPF (0-FEW) Urine Hyaline Casts Moderate /HPF Urine Mucus Mod /LPF Laboratory Tests 09/10/20 17:15 Laboratory Tests 09/10/20 17:15 Vital Signs: Vital Signs Date Time Temp Pulse Resp B/P (MAP) Pulse Ox O2 Delivery O2 Flow Rate FiO2 09/10/20 19:05 93 81/43 (56) 96 Room Air 09/10/20 18:14 18 09/10/20 17:10 97.6 97.6 EKG: EKG: [] Radiology/Procedures: Radiology/Procedures: []PROCEDURE: CT ABD PELV W/ IV CONTRST ONLY CT abdomen pelvis with contrast dated 09/10/2020. Comparison made to 06/25/2020. CLINICAL INDICATION: Right lower quadrant pain. TECHNIQUE: Contiguous axial imaging of abdomen and pelvis performed after the administration of 60 cc Omnipaque 300. One or more of the following individualized dose reduction techniques were utilized for this examination: 1. Automated exposure control 2. Adjustment of the mA and/or kV according to patient size 3. Use of iterative reconstruction technique. FINDINGS: Limited images of lung bases are clear. Heart size is mildly enlarged. No pleural or pericardial effusion. Coronary artery calcifications. Liver is homogeneous. No apparent hepatic mass. Biliary tree normal in caliber. Gallbladder unremarkable. Spleen is mildly enlarged. Pancreas, adrenal glands and kidneys are unremarkable. No hydronephrosis. Unopacified GI tract normal in caliber and contour. No focal bowel wall thickening. There is some hazy inflammatory stranding in the paracolonic fat near the hepatic flexure of uncertain etiology. Appendix is not clearly identified. There are a few scattered diverticula within the distal colon. No free fluid or lymphadenopathy. Abdominal aorta normal in caliber. Images of pelvis show nondistended urinary bladder. Uterus is surgically absent. No free fluid or pelvic lymphadenopathy. Bone windows show no acute findings. Multilevel spondylosis. IMPRESSION: 1. There is some mild hazy inflammatory stranding in the paracolonic fat near the hepatic flexure, uncertain etiology. Consider mild or subacute resolving colitis or epiploic appendagitis. 2. The appendix is not clearly identified. No inflammatory changes in the right lower quadrant. 3. Diverticulosis. 4. Status post hysterectomy. Electronically signed by: Peña Dodge MD (09/10/2020 6:46 PM) [id number] DICTATED and SIGNED BY: PEÑA DODGE MD DATE: 09/10/20 [id number] 0 Course & Med Decision Making: Course & Med Decision Making Pertinent Labs and Imaging studies reviewed. (See chart for details) This is a 69-year-old female patient with history of chronic diarrhea presenting today complaining of right lower quadrant abdominal pain that began today after having an upper and lower GI scope for chronic diarrhea. CBC CMP lipase with no acute findings. UA positive for UTI. CT of the abdomen and pelvic was essentially negative for any acute findings. Patient was given a liter of fluid. Discharged home. Follow-up with PCP and GI doctor in the course of this week. Given prescription for cephalexin for UTI. [place] Disclaimer: [place] Disclaimer: This electronic medical record was generated, in whole or in part, using a voice recognition dictation system. Departure Departure Impression: Primary Impression: UTI (urinary tract infection) Qualified Codes: N39.0 - Urinary tract infection, site not specified Additional Impression: Abdominal pain, right lower quadrant Disposition: 01 DC HOME SELF CARE/HOMELESS Condition: STABLE Referrals: Edith CONTE MD (PCP) follow up in 1 week AURELIANO GILMORE MD follow up in 1 week Patient Instructions: Abdominal Pain, Urinary Tract Infection Additional Instructions: You have urinary tract infection, take the prescribed antibiotics until completed. Follow-up with your doctor in 1 week Scripts Tramadol Hcl (TRAMADOL HCL) 50 Mg Tablet 50 MG PO Q6HRS PRN for PAIN, #8 TAB Prov: SUZY KHANNA APRN 09/10/20 Cephalexin (CEPHALEXIN) 500 Mg Tablet 1 TAB PO BID, #14 TAB Prov: SUZY KHANNA APRN 09/10/20 SUZY KHANNA APRN Sep 10, 2020 20:06
[2020-09-10 20:35] VITALS: BP 94/45
== END 2020-09-10 20:50 | disposition home or self-care (01) ==
LOC: ER 16:57
DX: N39.0 Urinary tract infection, site not specified (principal); I10 Essential (primary) hypertension; E03.9 Hypothyroidism, unspecified; Z87.891 Personal history of nicotine dependence; Z90.89 Acquired absence of other organs; Z90.710 Acquired absence of both cervix and uterus; Z88.2 Allergy status to sulfonamides
CPT/HCPCS: 36415; 74177; 80053; 81001; 83690; 85007; 85025; 87086; 96374; 96375; 99285; J0696; J2270; Q9967

== ENCOUNTER → 2020-10-01 | Outpatient (CLI) | payer MEDICARE, BC ==
[2020-09-10 20:35] VITALS: BP 94/45
[~2020-10-01] MED LIST changes: +CEPH500T PO; +SERT-268 PO; -SERT100T8 PO; +TRAM50TA PO
--- NOTE | 2020-10-01 11:54 | KCIC ---
EXAM: Brain MRI without contrast. HISTORY: Memory loss. TECHNIQUE: Multiplanar, multisequence magnetic resonance imaging of the brain was performed without c ontrast. COMPARISON: Head CT dated 06/02/2020. FINDINGS: There is no restricted diffusion to suggest acute or subacute infarction. There is no susce ptibility effect to suggest hemorrhage. There is no mass effect or midline shift. There is no hydroce phalus. There are scattered focal areas of signal change within the cerebral white matter, likely due to engineer first assistant matt small vessel disease. There is a tiny focus of encephalomalacia within the right cerebellum, like ly due to chronic infarction. There is evidence of lens surgery. The paranasal sinuses are unremarkable. There is minimal left mast oid fluid. There are normal flow voids within the cerebral vessels. There is no suspicious calvarial lesion. IMPRESSION: 1. No acute intracranial finding. 2. Bilateral cerebral white matter changes, likely due to chronic small vessel disease in a patient o f this age. 3. Tiny focus of encephalomalacia within the right cerebellum. Electronically signed by: Marisol Childers MD (10/01/2020 11:51 AM) [id number]
== END ==
LOC: KCIC MRI 10:46
PROVIDERS: ATTEND Psychiatry & Neurology Neurology
DX: G93.89 Other specified disorders of brain (principal); R41.3 Other amnesia
CPT/HCPCS: 70551